=== PATIENT | male | born 1980 | race Caucasian/White ===

== ENCOUNTER 2019-05-16 16:33 | Emergency (ER) | payer OTHER, SELFPAY ==
[2019-05-16 16:35] VITALS: BP 91/57; PULSE 102; RESP 18; TEMP 37.6; O2SAT 99; BMI 23.7
[2019-05-16 17:22] VITALS: BP 106/71; PULSE 86; RESP 16
--- NOTE | 2019-05-16 17:35 | ED.VIS.GEN ---
History of Present Illness Chief Complaint: General Illness Detail of Chief Complaint: High blood sugar, joint pain Informant: Patient Onset: Today Current Severity: Mild Maximum Severity: Moderate Narrative: Patient presents with joint pain to both shoulders and right hip that started today. He states his blood sugar was somewhat high this morning, but not necessarily out of range for him recently. He did not have much of an appetite and has not eaten today. He denies any recent illness. - Past Medical History (1) Diabetes Status: Acute (2) Right femoral fracture Status: Acute Past Medical History - Allergies and Home Meds Allergies/Adverse Reactions: Allergies No Known Allergies Allergy (Verified 05/16/19 16:35) Primary Care Physician: Terra Casillas MD [Primary Care Provider] - 3-5 Days if not improving Prior records reviewed: Yes Past Medical History: - - Reviewed Surgical History: - - Right femur Lives: Alone Smoking Status: Never smoker Review of Systems General: Denies: Chills, Fever Cardiovascular: Denies: Chest pain, Palpitations Respiratory: Denies: Dyspnea, Cough Gastrointestinal: Reports: Nausea. Denies: Abdominal pain, Vomiting, Diarrhea Genitourinary: Denies: Dysuria, Hematuria Musculoskeletal: Reports: Myalgias, Arthralgias Neurological: Denies: Headache Physical Exam Vital Signs/Narrative: Vital Signs Temp Pulse Resp BP Pulse Ox 05/16/19 17:22 86 16 106/71 05/16/19 16:35 99.6 F H 102 H 18 91/57 L 99 General: Well nourished, Well developed Eyes: Perrl ENT: Moist mucous membranes Cardiovascular: Regular rate, Regular rhythm Respiratory: No distress, CTA bilaterally Abdomen: Soft, Nontender, Hypoactive bowel sounds Extremities: No edema, - - Mild tenderness to both shoulder joints. Full range of motion noted. Skin: Normal color, No rash Neurological: Alert, Oriented x3 Psychological: Normal affect Diagnostic/Tx/Re-eval Laboratory Tests 05/16/19 05/16/19 05/16/19 Range/Units 20:29 17:15 17:15 WBC (4.4-11.0) K/mm3 RBC (4.6-6.2) M/mm3 Hgb (13.0-16.5) g/dl Hct (40-54) % MCV (80-94) fL MCH (27.0-32.0) pg MCHC (32-36) g/gl RDW (11.6-14.6) % RDW Differential (35.1-43.9) fl Plt Count (150-450) K/mm3 MPV (6.2-12.0) fl Immature Gran % (Auto) (0.0-0.9) % Neut % (Auto) (47-70) % Lymph % (Auto) (19-41) % [place] % (Auto) (0-10) % Eos % (Auto) (0-5) % Baso % (Auto) (0-1) % Absolute Neuts (auto) (2.0-7.7) X10^3/uL Absolute Lymphs (auto) (0.83-4.51) X10^3/ul Total Counted Sodium (136-145) mmol/L Potassium (3.5-5.1) mmol/L Chloride (98-107) mmol/L Carbon Dioxide (21.0-32.0) mmol/L Anion Gap (5-15) BUN (7-18) mg/dL Creatinine (0.70-1.30) mg/dL Estim Creat Clear Calc ml/min Est GFR (MDRD) Af Amer (>60) mL/min Est GFR (MDRD) Non-Af (>60) mL/min BUN/Creatinine Ratio (10-20) RATIO Glucose (74-106) mg/dL Lactic Acid (0.4-2.0) mmol/L Calcium (8.5-10.1) mg/dL Total Bilirubin (0.20-1.00) mg/dL AST (15-37) U/L ALT (16-61) U/L Alkaline Phosphatase (45-117) U/L Total Creatine Kinase 30 L (39-308) U/L Total Protein (6.4-8.2) g/dL Albumin (3.2-5.0) g/dL Globulin (2.2-4.2) g/dL Albumin/Globulin Ratio (0.9-2.4) RATIO Urine Color Yellow (Yellow) Urine Clarity Clear (Clear) Urine pH 6.0 (5.0 - 8.0) Ur Specific [place] 1.010 (1.002-1.030) Urine Protein Negative (Negative) mg/dl Urine Glucose (UA) 250 H (Normal) mg/dl Urine Ketones 15 H (Negative) mg/dl Urine Occult Blood Negative (Negative) /ul Urine Nitrite Negative (Negative) Urine Bilirubin Negative (Negative) mg/dL Urine Urobilinogen Normal (Normal) mg/dl Ur Leukocyte Esterase Negative (Negative) /ul Urine RBC 0 SEEN (0-5) /hpf Urine WBC 0 SEEN (0-5) /hpf Ur Squamous Epith Cells 0 SEEN (0-5) /hpf Urine Bacteria 0 SEEN (None Seen) /hpf Urine Mucus 0 SEEN (<or=2+) /hpf Acetone Level NEGATIVE (NEG) 05/16/19 05/16/19 05/16/19 Range/Units 17:15 17:15 17:15 WBC 12.7 H (4.4-11.0) K/mm3 RBC 4.55 L (4.6-6.2) M/mm3 Hgb 13.6 (13.0-16.5) g/dl Hct 39.6 L (40-54) % MCV 87.0 (80-94) fL MCH 29.9 (27.0-32.0) pg MCHC 34.3 (32-36) g/gl RDW 13.0 (11.6-14.6) % RDW Differential 41.7 (35.1-43.9) fl Plt Count 212 (150-450) K/mm3 MPV 9.0 (6.2-12.0) fl Immature Gran % (Auto) 0.200 (0.0-0.9) % Neut % (Auto) 86.0 H (47-70) % Lymph % (Auto) 5.6 L (19-41) % [place] % (Auto) 7.4 (0-10) % Eos % (Auto) 0.6 (0-5) % Baso % (Auto) 0.2 (0-1) % Absolute Neuts (auto) 11.0 H (2.0-7.7) X10^3/uL Absolute Lymphs (auto) 0.71 L (0.83-4.51) X10^3/ul Total Counted Not Reportable Sodium 139 (136-145) mmol/L Potassium 3.9 (3.5-5.1) mmol/L Chloride 102 (98-107) mmol/L Carbon Dioxide 27.0 (21.0-32.0) mmol/L Anion Gap 10 (5-15) BUN 11 (7-18) mg/dL Creatinine 1.25 (0.70-1.30) mg/dL Estim Creat Clear Calc 91.33 ml/min Est GFR (MDRD) Af Amer 82 (>60) mL/min Est GFR (MDRD) Non-Af 68 (>60) mL/min BUN/Creatinine Ratio 8.8 L (10-20) RATIO Glucose 203 H (74-106) mg/dL Lactic Acid 3.8 H (0.4-2.0) mmol/L Calcium 9.0 (8.5-10.1) mg/dL Total Bilirubin 0.70 (0.20-1.00) mg/dL AST 12 L (15-37) U/L ALT 21 (16-61) U/L Alkaline Phosphatase 65 (45-117) U/L Total Creatine Kinase (39-308) U/L Total Protein 6.9 (6.4-8.2) g/dL Albumin 3.5 (3.2-5.0) g/dL Globulin 3.4 (2.2-4.2) g/dL Albumin/Globulin Ratio 1.0 (0.9-2.4) RATIO Urine Color (Yellow) Urine Clarity (Clear) Urine pH (5.0 - 8.0) Ur Specific [place] (1.002-1.030) Urine Protein (Negative) mg/dl Urine Glucose (UA) (Normal) mg/dl Urine Ketones (Negative) mg/dl Urine Occult Blood (Negative) /ul Urine Nitrite (Negative) Urine Bilirubin (Negative) mg/dL Urine Urobilinogen (Normal) mg/dl Ur Leukocyte Esterase (Negative) /ul Urine RBC (0-5) /hpf Urine WBC (0-5) /hpf Ur Squamous Epith Cells (0-5) /hpf Urine Bacteria (None Seen) /hpf Urine Mucus (<or=2+) /hpf Acetone Level (NEG) - Medical Decision Making Patient was given IV fluids, morphine, and Zofran. Repeat evaluation he feels somewhat improved, but still has pain to the shoulder joints and right hip. He does not tell me that last week he had been working with his arms overhead, but did not note any shoulder pain until today. There is no erythema or excessive warmth to the joints. He has full range of motion without difficulty. I discussed with him that he may be coming down with viral syndrome and has noted tenderness in the joints at this time. He has been able to tolerate p.o. diet here without difficulty. He is given his Lantus prior to discharge. He is given return instructions and he voices understanding and agreement. ED Disposition - Plan for ED Patient: Disposition: Home or Assisted Living Diagnosis: Myalgia, Arthralgia Instructions: Arthralgia, Myalgias Prescriptions: Hydrocodone Bitart/Apap 5-325 [[place] 5MG-325MG] 1 tab PO Q6H PRN PRN 3 Days #10 tab PRN Reason: Pain Prescription Printed Referrals: Terra Casillas MD [Primary Care Provider] - 3-5 Days if not improving
[2019-05-16] MEDS: 0.9% Normal Saline 1,000 ML 1000 ML IV (17:38)
[2019-05-16 17:40] LABS: Absolute Lymphocyte Count 0.71 X10^3/ul (0.83-4.51); Basophil# 0.02 X10^3/uL; Basophil% 0.2 % (0-1); Eosinophil# 0.07 X10^3/uL; Eosinophils% 0.6 % (0-5); Hematocrit 39.6 % (40-54); Hemoglobin 13.6 g/dl (13.0-16.5); Lymphocyte # 0.71 X10^3/ul (4.0); Lymphocyte % 5.6 % (19-41); Mean Corp Hgb Conc 34.3 g/gl (32-36); Mean Corpuscular Hgb 29.9 pg (27.0-32.0); Monocyte# 0.94 X10^3/uL; Monocyte% 7.4 % (0-10); Neutrophil # 10.95 X10^3/uL (2.7-7.7); Platelet Count 212 K/mm3 (150-450); RBC Distribution Width SD 41.7 fl (35.1-43.9); Red Blood Count 4.55 M/mm3 (4.6-6.2); White Blood Count 12.7 K/mm3 (4.4-11.0)
[2019-05-16 17:41] LABS: POSITIVE COUNT NO; POSITIVE DIFFERENTIAL NO; POSITIVE MORPHOLOGY NO
[2019-05-16] MEDS: Morphine 4 MG/ML Syringe IV (17:54)
[2019-05-16] MEDS: Ondansetron 4 MG/2 ML Vial IV (17:54)
[2019-05-16 17:55] LABS: AST(SGOT) 12 U/L (15-37); Alanine Aminotransfer ALT/SGPT 21 U/L (16-61); Albumin, Serum 3.5 g/dL (3.2-5.0); Alkaline Phosphatase 65 U/L (45-117); Anion Gap 10 (5-15); BUN 11 mg/dL (7-18); BUN/Creat Ratio 8.8 RATIO (10-20); Chloride 102 mmol/L (98-107); Creatinine, Serum 1.25 mg/dL (0.70-1.30); EST Glomerular Filtration Rate 68 mL/min (>60); Est Glom Filt Rate - Afr Amer 82 mL/min (>60); Estimated Creatinine Clearance 91.33 ml/min; Globulin 3.4 g/dL (2.2-4.2); Glucose 203 mg/dL (74-106); Potassium 3.9 mmol/L (3.5-5.1); Protein, Total 6.9 g/dL (6.4-8.2); Sodium Level 139 mmol/L (136-145)
[2019-05-16 18:01] LABS: CPK Total, Creatine Kinase 30 U/L (39-308)
[2019-05-16] MEDS: 0.9% Normal Saline 1,000 ML 150 ML IV (18:02)
[2019-05-16 18:10] LABS: Lactic Acid 3.8 mmol/L (0.4-2.0)
--- NOTE | 2019-05-16 18:14 | ED.RN ---
LACT[address] 37, [place].
[2019-05-16 18:28] VITALS: BP 99/61; PULSE 93; RESP 19; O2SAT 98
[2019-05-16 20:38] LABS: Bacteria 0 SEEN /hpf (None Seen); Mucous, Urine 0 SEEN /hpf (<or=2+); Red Blood Cells-Urine 0 SEEN /hpf (0-5); Squamous Epithelial Cells - UA 0 SEEN /hpf (0-5); White Blood Cells 0 SEEN /hpf (0-5)
[2019-05-16 20:44] VITALS: BP 107/68; PULSE 82; RESP 18; TEMP 37.3; O2SAT 95
[2019-05-16 20:45] LABS: Color, Urine Yellow (Yellow); Glucose, Dipstick 250 mg/dl (Normal); Ketone-Dipstick 15 mg/dl (Negative); Leukocyte Esterase-Dipstick Negative /ul (Negative); Nitrite-Dipstick Negative (Negative); Occult Blood-Urine Negative /ul (Negative); Protein-Dipstick Negative (Negative); Urine Bilirubin Dipstick Negative (Negative); Urine Clarity Clear (Clear); Urine Urobilinogen Normal (Normal)
[2019-05-16 21:32] LABS: Reflex Lactate? Y
[2019-05-16 21:36] VITALS: BP 98/63; PULSE 86; RESP 16; O2SAT 95
[2019-05-16 21:50] VITALS: BP 104/65; PULSE 84; RESP 15; O2SAT 96
== END 2019-05-16 21:58 | disposition home or self-care (01) ==
PROVIDERS: Emergency Provider Emergency Medicine; Family Provider Internal Medicine; PCP Internal Medicine
DX: M79.10 Myalgia, unspecified site (principal); M25.512 Pain in left shoulder; M25.511 Pain in right shoulder; E11.9 Type 2 diabetes mellitus without complications
CPT/HCPCS: 36415; 80053; 81001; 82009; 82550; 83605; 85025; 87040; 96361; 96374; 96375; 99285; J7030; J2405